=== PATIENT | female | born 1940 | race Caucasian/White ===

== ENCOUNTER 2019-01-20 12:27 | Emergency (ER) | payer BC, OTHER ==
[2019-01-20 13:09] LABS: Urine Blood NEGATIVE (NEG); Urine Glucose NEGATIVE (NEG); Urine Protein NEGATIVE (NEG)
[2019-01-20 13:10] LABS: Absolute Lymphocytes (CBC) 1.3 K/uL (0.7-4.9); Absolute Monocytes 0.6 K/uL (0.1-1.3); Absolute Neutrophil 7.4 K/uL (1.8-8.0); Basophils % 0.4 % (0-1.3); Eosinophils % 0.3 % (0-4.4); Hematocrit 42.2 % (36.0-45.0); Lymphocytes % 14.4 % (15.3-44.8); MPV 10.8 fL (7.6-11.3); RBC Red Blood Cell Count 4.35 M/uL (3.86-4.86)
[2019-01-20] MEDS ORDERED: NA CHLORIDE 0.9% 1,000 ML ONE (13:16)
[2019-01-20 13:27] LABS: Albumin 4.2 g/dL (3.4-5.0); Bilirubin Direct 0.2 mg/dL (0-0.2); Bilirubin Total 0.8 mg/dL (0.2-1.0); Potassium 4.6 mmol/L (3.5-5.1); Protein, Total 7.8 g/dL (6.4-8.2); Troponin (Emerg Dept Use Only) 0.02 ng/mL (0.0-0.045)
--- NOTE | 2019-01-20 13:54 | RAD REPORT ---
EXAM DESCRIPTION: Adrian Single View01/20/2019 1:32 pm CLINICAL HISTORY: htn COMPARISON: 2016 FINDINGS: The lungs appear clear of acute infiltrate. The heart is borderline enlarged IMPRESSION: No acute abnormalities displayed
--- NOTE | 2019-01-20 14:05 | ER ---
Nurse's Notes [facility] Name: Vanna Saunders Age: 78 yrs Sex: Female : 1940 Arrival Date: 01/20/2019 Time: 12:29 Bed 25 Private MD: Jose Everett Diagnosis: Essential (primary) hypertension Presentation: 01/20 12:33 Presenting complaint: Patient states: HTN 231/99 started this morning and is now having sv a headache. Transition of care: patient was not received from another setting of care. Onset of symptoms was January 20, 2019. Care prior to arrival: None. 12:33 Method Of Arrival: Ambulatory sv 12:33 Acuity: NEHA 3 sv 13:02 Risk Assessment: Do you want to hurt yourself or someone else? Patient reports no la1 desire to harm self or others. Initial Sepsis Screen: Does the patient meet any 2 criteria? No. Patient's initial sepsis screen is negative. Does the patient have a suspected source of infection?. Triage Assessment: 12:36 General: Appears in no apparent distress. comfortable, well developed, Behavior is sv calm, cooperative, appropriate for age. Pain: Complains of pain in face Pain currently is 1 out of 10 on a pain scale. Neuro: Level of Consciousness is awake, alert, obeys commands, Oriented to person, place, time, situation, Moves all extremities. Full function Gait is steady, Reports headache. Respiratory: Airway is patent Respiratory effort is even, unlabored, Respiratory pattern is regular, symmetrical. Historical: - Allergies: 12:35 No Known Allergies; sv - Home Meds: 12:35 hydrochlorothiazide 25 mg Oral tab 1 tab once daily [Active]; irbesartan 150 mg Oral sv tab 1 tab once daily [Active]; atorvastatin oral oral [Active]; aspirin 81 mg Oral chew [Active]; - PMHx: 12:35 Hypertension; sv - PSHx: 12:35 None; sv - Immunization history:: Adult Immunizations up to date. - Social history:: Smoking status: Patient/guardian denies using tobacco. - Ebola Screening: : No symptoms or risks identified at this time. Screenin:01 Abuse screen: Denies threats or abuse. Nutritional screening: No deficits noted. la1 Tuberculosis screening: No symptoms or risk factors identified. Fall Risk None identified. Assessment: 13:00 General: Appears in no apparent distress. Behavior is calm, cooperative. Pain: la1 Complains of pain in face. 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 Gait is steady, Speech is normal, Facial symmetry appears normal, Pupils are PERRLA. Cardiovascular: Capillary refill < 3 seconds Patient's skin is warm and dry. Cardiovascular: Denies chest pain, diaphoresis, fatigue, lightheadedness, nausea, palpitations, shortness of breath, syncope, vomiting. Respiratory: Airway is patent Respiratory effort is even, unlabored, Respiratory pattern is regular, symmetrical, Breath sounds are clear bilaterally. GI: No signs and/or symptoms were reported involving the gastrointestinal system. : No signs and/or symptoms were reported regarding the genitourinary system. 14:14 Reassessment: Patient appears in no apparent distress at this time. No changes from la1 previously documented assessment. Patient and/or family updated on plan of care and expected duration. Pain level reassessed. Patient is alert, oriented x 3, equal unlabored respirations, skin warm/dry/pink. 14:36 Reassessment: awaiting BP to stabilize before D/C. la1 Vital Signs: 12:35 BP 202 / 99; Pulse 87; Resp 18; Temp 98; Pulse Ox 97% ; Weight 77.11 kg; Height 5 ft. 3 sv in. (160.02 cm); Pain 1/10; 13:10 BP 166 / 81; Pulse 75; Resp 16; Pulse Ox 98% on R/A; la1 14:13 BP 188 / 93; Pulse 64; Resp 16; Pulse Ox 97% on R/A; la1 14:29 BP 188 / 88; la1 12:35 Body Mass Index 30.11 (77.11 kg, 160.02 cm) sv ED Course: 12:29 Patient arrived in ED. mr 12:29 Jose Everett MD is Private Physician. mr 12:34 Triage completed. sv 12:35 Arm band placed on. sv 12:43 Manuel Poe RN is Primary Nurse. la1 12:47 Raz Desai MD is Attending Physician. meggan 13:01 Bed in low position. Call light in reach. Pulse ox on. NIBP on. la1 13:01 Inserted saline lock: 22 gauge in left antecubital area, using aseptic technique. Blood la1 collected. 13:32 XRAY Chest (1 view) In Process Unspecified. EDMS 14:04 Jose Everett MD is Referral Physician. [facility] 14:04 Everardo Johnson MD is Referral Physician. [facility] 14:50 No provider procedures requiring assistance completed. IV discontinued, intact, la1 bleeding controlled, No redness/swelling at site. Pressure dressing applied. Administered Medications: 13:11 Drug: NS 0.9% 1000 ml Route: IV; Rate: 75 ml/hr; Site: left antecubital; la1 14:50 Follow up: IV Status: Order to discontinue infusion la1 14:13 Drug: TORadol 30 mg Route: IVP; Site: left antecubital; la1 14:29 Follow up: Response: No adverse reaction; Pain is decreased la1 14:49 Drug: Norvasc 5 mg Route: PO; la1 14:49 Follow up: Response: Medication administered at discharge. la1 Outcome: 14:04 Discharge ordered by . meggan 14:50 Discharged to home ambulatory. la1 14:50 Condition: stable 14:50 Discharge instructions given to patient, Instructed on discharge instructions, follow up and referral plans. medication usage, Demonstrated understanding of instructions, follow-up care, medications, Prescriptions given X 1. 14:50 Patient left the ED. la1 Signatures: Dispatcher [employer] EDSC Sherry Myers RN RN sv Anderson, Corey, MD MD cha Rivera, Mary mr Attema, Lee RN RN la1 Corrections: (The following items were deleted from the chart) 12:36 12:33 Acuity: NEHA 4 sv sv 12:37 12:35 Pulse 87bpm; Resp 18bpm; Pulse Ox 97%; Temp 98F; 77.11 kg; Height 5 ft. 3 in.; sv BMI: 30.1; Pain 1/10; sv
--- NOTE | 2019-01-20 14:05 | EDPHYS ---
Physician Documentation [facility] Name: Vanna Saunders Age: 78 yrs Sex: Female : 1940 Arrival Date: 01/20/2019 Time: 12:29 Bed 25 Private MD: Jose Everett ED Physician Raz Desai HPI: 01/20 14:00 This 78 yrs old Female presents to ER via Ambulatory with complaints of High meggan Blood Pressure. 14:00 The patient has elevated blood pressure and discovered this at home. Onset: The meggan symptoms/episode began/occurred just prior to arrival. Modifying factors: The symptoms are aggravated by activity, The symptoms are alleviated by remaining still. Associated signs and symptoms: Pertinent positives: headache. Severity of symptoms: At its worst the blood pressure was mild, in the emergency department the blood pressure is unchanged. The patient has experienced similar episodes in the past, a few times. Historical: - Allergies: 12:35 No Known Allergies; sv - Home Meds: 12:35 hydrochlorothiazide 25 mg Oral tab 1 tab once daily [Active]; irbesartan 150 mg Oral sv tab 1 tab once daily [Active]; atorvastatin oral oral [Active]; aspirin 81 mg Oral chew [Active]; - PMHx: 12:35 Hypertension; sv - PSHx: 12:35 None; sv - Immunization history:: Adult Immunizations up to date. - Social history:: Smoking status: Patient/guardian denies using tobacco. - Ebola Screening: : No symptoms or risks identified at this time. ROS: 14:00 Constitutional: Negative for fever, chills, and weight loss, Eyes: Negative for injury, meggan pain, redness, and discharge, ENT: Negative for injury, pain, and discharge, Neck: Negative for injury, pain, and swelling, Cardiovascular: Negative for chest pain, palpitations, and edema, Respiratory: Negative for shortness of breath, cough, wheezing, and pleuritic chest pain, Abdomen/GI: Negative for abdominal pain, nausea, vomiting, diarrhea, and constipation, Back: Negative for injury and pain, : Negative for injury, bleeding, discharge, and swelling, MS/Extremity: Negative for injury and deformity, Skin: Negative for injury, rash, and discoloration, Psych: Negative for depression, anxiety, suicide ideation, homicidal ideation, and hallucinations, Allergy/Immunology: Negative for hives, rash, and allergies, Endocrine: Negative for neck swelling, polydipsia, polyuria, polyphagia, and marked weight changes, Hematologic/Lymphatic: Negative for swollen nodes, abnormal bleeding, and unusual bruising. 14:00 Neuro: Positive for headache. Exam: 14:00 Constitutional: This is a well developed, well nourished patient who is awake, alert, meggan and in no acute distress. Head/Face: Normocephalic, atraumatic. Eyes: Pupils equal round and reactive to light, extra-ocular motions intact. Lids and lashes normal. Conjunctiva and sclera are non-icteric and not injected. Cornea within normal limits. Periorbital areas with no swelling, redness, or edema. ENT: Nares patent. No nasal discharge, no septal abnormalities noted. Tympanic membranes are normal and external auditory canals are clear. Oropharynx with no redness, swelling, or masses, exudates, or evidence of obstruction, uvula midline. Mucous membranes moist. Neck: Trachea midline, no thyromegaly or masses palpated, and no cervical lymphadenopathy. Supple, full range of motion without nuchal rigidity, or vertebral point tenderness. No Meningismus. Chest/axilla: Normal chest wall appearance and motion. Nontender with no deformity. No lesions are appreciated. Cardiovascular: Regular rate and rhythm with a normal S1 and S2. No gallops, murmurs, or rubs. Normal PMI, no JVD. No pulse deficits. Respiratory: Lungs have equal breath sounds bilaterally, clear to auscultation and percussion. No rales, rhonchi or wheezes noted. No increased work of breathing, no retractions or nasal flaring. Abdomen/GI: Soft, non-tender, with normal bowel sounds. No distension or tympany. No guarding or rebound. No evidence of tenderness throughout. Back: No spinal tenderness. No costovertebral tenderness. Full range of motion. Skin: Warm, dry with normal turgor. Normal color with no rashes, no lesions, and no evidence of cellulitis. MS/ Extremity: Pulses equal, no cyanosis. Neurovascular intact. Full, normal range of motion. Neuro: Awake and alert, GCS 15, oriented to person, place, time, and situation. Cranial nerves II-XII grossly intact. Motor strength 5/5 in all extremities. Sensory grossly intact. Cerebellar exam normal. Normal gait. Psych: Awake, alert, with orientation to person, place and time. Behavior, mood, and affect are within normal limits. 14:00 Neuro: Orientation: is normal, Mentation: is normal, appropriate for stated age, no acute changes, Memory: is normal, appropriate for stated age, no acute changes, Cranial nerves: grossly normal, is grossly normal based on the patient's age, no acute changes, Cerebellar function: is grossly normal, is grossly normal based on the patient's age, no acute changes, Motor: moves all fours, Sensation: is normal, no obvious gross deficits, appropriate Gait: not tested. seizure activity, is not displayed by the patient. Vital Signs: 12:35 BP 202 / 99; Pulse 87; Resp 18; Temp 98; Pulse Ox 97% ; Weight 77.11 kg; Height 5 ft. 3 sv in. (160.02 cm); Pain 1/10; 13:10 BP 166 / 81; Pulse 75; Resp 16; Pulse Ox 98% on R/A; la1 14:13 BP 188 / 93; Pulse 64; Resp 16; Pulse Ox 97% on R/A; la1 14:29 BP 188 / 88; la1 12:35 Body Mass Index 30.11 (77.11 kg, 160.02 cm) sv MDM: 12:47 Medical screening is not applicable. [facility] 14:03 Data reviewed: vital signs, nurses notes, lab test result(s), EKG, radiologic studies, [facility] plain films. 01/20 12:45 Order name: Basic Metabolic Panel; Complete Time: 13:53 [facility] 01/20 12:45 Order name: CBC with Diff; Complete Time: 13:53 [facility] 01/20 12:45 Order name: LFT's; Complete Time: 13:53 [facility] 01/20 12:45 Order name: Magnesium; Complete Time: 13:53 [facility] 01/20 12:45 Order name: NT PRO-BNP; Complete Time: 13:53 [facility] 01/20 12:45 Order name: PT-INR; Complete Time: 13:53 [facility] 01/20 12:45 Order name: Troponin (emerg Dept Use Only); Complete Time: 13:53 [facility] 01/20 12:45 Order name: XRAY Chest (1 view) [facility] 01/20 12:45 Order name: EKG; Complete Time: 12:46 [facility] 01/20 12:50 Order name: Urine Culture [facility] 01/20 13:02 Order name: Urine Dipstick--Ancillary (enter results); Complete Time: 13:53 [facility] 01/20 12:45 Order name: Cardiac monitoring; Complete Time: 13:00 [facility] 01/20 12:45 Order name: EKG - Nurse/Tech; Complete Time: 13:00 [facility] 01/20 12:45 Order name: IV Saline Lock; Complete Time: 13:00 [facility] 01/20 12:45 Order name: Labs collected and sent; Complete Time: 13:00 [facility] 01/20 12:45 Order name: O2 Per Protocol; Complete Time: 13:00 [facility] 01/20 12:45 Order name: O2 Sat Monitoring; Complete Time: 13:00 [facility] 01/20 12:50 Order name: Urine Dipstick-Ancillary (obtain specimen); Complete Time: 13:00 [facility] Administered Medications: 13:11 Drug: NS 0.9% 1000 ml Route: IV; Rate: 75 ml/hr; Site: left antecubital; la1 14:50 Follow up: IV Status: Order to discontinue infusion la1 14:13 Drug: TORadol 30 mg Route: IVP; Site: left antecubital; la1 14:29 Follow up: Response: No adverse reaction; Pain is decreased la1 14:49 Drug: Norvasc 5 mg Route: PO; la1 14:49 Follow up: Response: Medication administered at discharge. [facility] Disposition: 01/20/19 14:04 Discharged to Home. Impression: Essential (primary) hypertension. - Condition is Stable. - Discharge Instructions: General Headache Without Cause, Hypertension, Hypertension, [id number], How to Take Your Blood Pressure, Ioac-pc-[id number], General Headache Without Cause, [id number], Managing Your Hypertension. - Prescriptions for Norvasc 5 mg Oral Tablet - take 1 tablet by ORAL route once daily; 20 tablet. - Medication Reconciliation Form, Thank You Letter, Antibiotic Education, Prescription Opioid Use form. - Follow up: Jose Everett; When: 2 - 3 days; Reason: Recheck today's complaints, Continuance of care, Re-evaluation by your physician. Follow up: Everardo Johnson MD; When: 2 - 3 days; Reason: Recheck today's complaints, Re-evaluation by your physician. - Problem is new. - Symptoms have improved. Signatures: Dispatcher [employer] Sherry Carrera, RN RN Raz Little MD MD cha Attema, Lee, RN RN la1 Corrections: (The following items were deleted from the chart) 14:50 14:04 01/20/2019 14:04 Discharged to Home. Impression: Essential (primary) la1 hypertension. Condition is Stable. Forms are Medication Reconciliation Form, Thank You Letter, Antibiotic Education, Prescription Opioid Use. Follow up: Jose Everett; When: 2 - 3 days; Reason: Recheck today's complaints, Continuance of care, Re-evaluation by your physician. Follow up: Everardo Johnson; When: 2 - 3 days; Reason: Recheck today's complaints, Re-evaluation by your physician. Problem is new. Symptoms have improved. meggan
[2019-01-20] MEDS ORDERED: KETOROLAC 30 MG/ML INJ ONE (14:14)
[2019-01-20] MEDS ORDERED: AMLODIPINE 5 MG TAB ONE (14:56)
[2019-01-20 15:05] VITALS: TEMP 98
[2019-01-20 15:07] VITALS: BP 188/88; O2SAT 97
--- NOTE | 2019-01-21 07:45 | EKG ---
Test Date: 2019-01-20 Test Time: 12:50:24 [employer]: LA MEASUREMENT RESULTS: Intervals: Rate: 80 WI: 138 QRSD: 82 QT: 394 QTc: 454 [place]: P: 53 WI: 138 QRS: -45 T: 46 INTERPRETIVE STATEMENTS: Normal sinus rhythm Possible Left atrial enlargement Left anterior fascicular block Left ventricular hypertrophy Abnormal ECG Compared to ECG 06/30/2016 06:47:45 Sinus bradycardia no longer present T-wave abnormality no longer present Electronically Signed On 01-21-19 07:44:54 CDT by Nils Burch
== END 2019-01-20 14:50 | disposition home or self-care (01) ==
LOC: ER 12:27
DX: I10 Essential (primary) hypertension (principal); Z79.82 Long term (current) use of aspirin
CPT/HCPCS: 36415; 71045; 80048; 80076; 81003; 83735; 83880; 84484; 85025; 85610; 87086; 87088; 93005; 96361; 96374; 99284; J7030

== ENCOUNTER 2024-09-02 14:53 | Emergency (ER) | payer BC, OTHER ==
[2024-09-02 16:29] LABS: Absolute Eosinophils 0.2 K/uL (0-0.5); Absolute Lymphocytes (CBC) 1.7 K/uL (0.7-4.9); Absolute Monocytes 1.1 K/uL (0.1-1.3); Absolute Neutrophil 9.6 K/uL (1.8-8.0); Basophils % 0.3 % (0-1.3); Eosinophils % 1.3 % (0-4.4); Hematocrit 47.1 % (36.0-45.0); Hemoglobin 15.4 g/dL (12.0-15.0); Lymphocytes % 13.6 % (15.3-44.8); MCH 32.4 pg (27.0-35.0); MCHC 32.6 g/dL (32.0-36.0); MCV 99.5 fL (80-100); MPV 10.7 fL (7.6-11.3); Monocytes % 8.7 % (3.3-12.3); Neutrophils % 76.1 % (41.7-73.7); Platelets 233 thou/uL (152-406); RBC Red Blood Cell Count 4.74 M/uL (3.86-4.86); Red Cell Distribution Width 13.6 % (12.1-15.2)
[2024-09-02 16:35] LABS: PT Prothrombin Time 11.9 SECONDS (9.4-12.5); Protime INR 1.06
[2024-09-02 16:47] LABS: Anion Gap 11.7 mEq/L (5.0-15.0); Potassium 3.7 mEq/L (3.5-5.1); Troponin High Sensitivity 8.9 pg/mL (<58.9)
--- NOTE | 2024-09-02 16:51 | RAD REPORT ---
EXAMINATION: ONE VIEW CHEST XR CLINICAL INDICATION: Female, 84 years old.,CHEST PAIN TECHNIQUE: Frontal chest projection is submitted. Examination is limited by patient positioning and t echnique. COMPARISON: 01/20/2019 FINDINGS: The lungs are well inflated and clear. No pneumothorax or sizable effusion. The heart is normal in s ize. Mediastinal contours are unremarkable. IMPRESSION: No acute intrathoracic abnormalities.
--- NOTE | 2024-09-02 17:11 | ER ---
Nurse's Notes [facility] Name: Vanna Saunders Age: 84 yrs Sex: Female : 1940 Arrival Date: 09/02/2024 Time: 14:53 Bed 4 Private MD: Diagnosis: Essential (primary) hypertension Presentation: 09/02 15:20 Chief complaint: Patient states: high blood pressure readings at home up to "178/92", aa5 pt has blood pressure log with her. Pt states "I am having a little chest pressure but I think it's because I am stressed about my blood pressure". Coronavirus screen: At this time, the client does not indicate any symptoms associated with coronavirus-19. Ebola Screen: Patient denies travel to an Ebola-affected area in the 21 days before illness onset. Initial Sepsis Screen: Does the patient meet any 2 criteria? No. Patient's initial sepsis screen is negative. Does the patient have a suspected source of infection? No. Patient's initial sepsis screen is negative. Risk Assessment: Do you want to hurt yourself or someone else? Patient reports no desire to harm self or others. Onset of symptoms was August 2024. 15:20 Method Of Arrival: Ambulatory aa5 15:20 Acuity: NEHA 2 aa5 Triage Assessment: 16:15 General: Appears in no apparent distress. Behavior is cooperative, appropriate for age, bp anxious. Pain: Complains of pain in chest. EENT: No deficits noted. Neuro: No deficits noted. Cardiovascular: Rhythm is sinus rhythm. Respiratory: No deficits noted. GI: No signs and/or symptoms were reported involving the gastrointestinal system. : No signs and/or symptoms were reported regarding the genitourinary system. Derm: No deficits noted. Musculoskeletal: No deficits noted. Historical: - Allergies: 15:23 No Known Allergies; aa5 - PMHx: 15:20 Hypertension; aa5 15:23 Hypercholesterolemia; Osteoporosis; spine; aa5 - PSHx: 15:20 heart stent (Unknown); aa5 15:23 cataracts; right wrist sx; Right jacobo; aa5 - Immunization history:: Adult Immunizations unknown. - Infectious Disease History:: Denies. - Social history:: Smoking status: Patient denies any tobacco usage or history of. Screenin:15 [facility] ED Fall Risk Assessment (Adult) History of falling in the last 3 months, bp including since admission No falls in past 3 months (0 pts) Confusion or Disorientation No (0 pts) Intoxicated or Sedated No (0 pts) Impaired Gait No (0 pts) Mobility Assist Device Used No (0 pt) Altered Elimination No (0 pt) Score/Fall Risk Level 0 - 2 = Low Risk. Abuse screen: Denies threats or abuse. Denies injuries from another. Nutritional screening: No deficits noted. Tuberculosis screening: No symptoms or risk factors identified. Assessment: 16:15 General: SEE TRIAGE NOTE. bp 17:01 Reassessment: Patient appears in no apparent distress at this time. Patient and/or hb family updated on plan of care and expected duration. Pain level reassessed. Patient is alert, oriented x 3, equal unlabored respirations, skin warm/dry/pink. 17:36 Reassessment: DC HOME AMBULATORY Patient states symptoms have improved. bp Vital Signs: 15:20 BP 200 / 82; Pulse 71; Resp 16 S; Temp 98.9(O); Pulse Ox 97% on R/A; Weight 68.95 kg aa5 (R); Height 5 ft. 3 in. (R); 16:30 BP 155 / 69; Pulse 65; Resp 16; Pulse Ox 100% ; bp 17:00 BP 155 / 69; Pulse 63; Resp 16; Pulse Ox 99% on R/A; hb 17:36 BP 161 / 83; Pulse 66; Resp 16; Pulse Ox 100% ; bp 15:20 Body Mass Index 26.93 (68.95 kg, 160.02 cm) aa5 ED Course: 15:01 Patient arrived in ED. mg5 15:19 Arm band placed on. aa5 15:22 Triage completed. aa5 15:25 Josh Cortes MD is Attending Physician. ec2 15:27 EKG completed in triage. Results shown to . aa5 15:58 XRAY Chest (1 view) In Process Unspecified. EDMS 16:15 Patient has correct armband on for positive identification. Provided Education on: N/A. bp Client placed on continuous cardiac and pulse oximetry monitoring. NIBP monitoring applied. monitoring specialist on. Pulse ox on. NIBP on. 16:15 No provider procedures requiring assistance completed. Patient maintains SpO2 bp saturation greater than 95% on room air. 16:20 Basic Metabolic Panel Sent. 6 16:20 CBC with Diff Sent. bc6 16:20 NT PRO-BNP Sent. bc6 16:20 PT-INR Sent. bc6 16:20 Troponin HS Sent. bc6 16:20 Initial lab(s) drawn, by me, sent to lab. Inserted saline lock: 20 gauge in left bc6 antecubital area, using aseptic technique. Blood collected. Flushed with 10 mL NS. 16:25 Jose Romero, RN is Primary Nurse. bp 17:10 Parag Pineda MD is Referral Physician. ec2 17:36 IV discontinued, intact, bleeding controlled, No redness/swelling at site. Pressure bp dressing applied. Administered Medications: No medications were administered Medication: 16:15 VIS not applicable for this client. bp Outcome: 17:10 Discharge ordered by . ec2 17:36 Discharged to home ambulatory, bp 17:36 Condition: stable 17:36 Discharge instructions given to patient, Instructed on discharge instructions, follow up and referral plans. Demonstrated understanding of instructions, follow-up care, 17:38 Patient left the ED. bp Signatures: Dispatcher [employer] EDChika Sandoval RN RN aa5 Meg Bermudez RN RN Jose Romero, RN RN bp Eloisa Bolanos 6 Becka Shine 5 Josh Cortes MD MD ec2 Corrections: (The following items were deleted from the chart) 15:36 15:20 Acuity: NEHA 3 aa5 aa5
--- NOTE | 2024-09-02 17:11 | EDPHYS ---
Physician Documentation [facility] Name: Vanna Saunders Age: 84 yrs Sex: Female : 1940 Arrival Date: 09/02/2024 Time: 14:53 Bed 4 Private MD: ED Physician Josh Cortes HPI: 09/02 16:52 This 84 yrs old Female presents to ER via Ambulatory with complaints of High ec2 Blood Pressure, Chest Pressure - ON AND OFF. 16:52 Patient arrives today due to concern for elevated blood pressure. Reports that she has ec2 a history of high blood pressure, states that she is been taken her blood pressure at home regularly and noted some elevated blood pressure. Reports that she is been having some occasional chest discomfort ongoing for a couple of weeks, no specific alleviating or exacerbating factors, denies any active chest pain at this time.. Historical: - Allergies: 15:23 No Known Allergies; aa5 - PMHx: 15:20 Hypertension; aa5 15:23 Hypercholesterolemia; Osteoporosis; spine; aa5 - PSHx: 15:20 heart stent (Unknown); aa5 15:23 cataracts; right wrist sx; Right jacobo; aa5 - Immunization history:: Adult Immunizations unknown. - Infectious Disease History:: Denies. - Social history:: Smoking status: Patient denies any tobacco usage or history of. ROS: 16:52 Constitutional: as per hpi ec2 Exam: 16:52 Constitutional: GEN: NAD Head: atraumatic Eyes: EOMI Ears: External ears are ec2 normal. CV: regular rate LUNGS: no respiratory distress ABD: non-distended SKIN: no evidence of rashes MSK: no evidence of trauma Vital Signs: 15:20 BP 200 / 82; Pulse 71; Resp 16 S; Temp 98.9(O); Pulse Ox 97% on R/A; Weight 68.95 kg aa5 (R); Height 5 ft. 3 in. (R); 16:30 BP 155 / 69; Pulse 65; Resp 16; Pulse Ox 100% ; bp 17:00 BP 155 / 69; Pulse 63; Resp 16; Pulse Ox 99% on R/A; hb 17:36 BP 161 / 83; Pulse 66; Resp 16; Pulse Ox 100% ; bp 15:20 Body Mass Index 26.93 (68.95 kg, 160.02 cm) aa5 MDM: 15:35 ED course: EKG independently reviewed and interpreted by me, shows normal sinus rhythm, ec2 rate of 66, no acute ST segment elevations, intervals are nonactionable.. 15:56 Medical Screening Exam initiated ec2 16:52 Data reviewed: vital signs, nurses notes. ED course: Patient arrives today for ec2 evaluation of elevated blood pressure. Examination is unrevealing. Will EKG as above, will obtain chest x-ray as well as lab work. Differential includes ACS, essential hypertension, electrolyte disturbances, anemia, doubt PE, doubt dissection.. 17:05 ED course: CBC, metabolic profile, troponin, BNP are unrevealing, chest x-ray shows no ec2 acute intrathoracic process. Will discharge home, will have the patient follow-up with her primary care doctor and measurement supervisor regarding her elevated blood pressure.. 12/ 15:26 Order name: Basic Metabolic Panel; Complete Time: 17:04 ec2 09/02 15:26 Order name: CBC with Diff; Complete Time: 17:04 ec2 09/02 15:26 Order name: NT PRO-BNP; Complete Time: 17:04 ec2 09/02 15:26 Order name: PT-INR; Complete Time: 17:04 ec2 09/02 15:26 Order name: Troponin HS; Complete Time: 17:04 ec2 09/02 15:26 Order name: XRAY Chest (1 view); Complete Time: 17:04 ec2 09/02 15:26 Order name: Cardiac monitoring; Complete Time: 16:37 ec2 09/02 15:26 Order name: EKG - Nurse/Tech; Complete Time: 15:36 ec2 09/02 15:26 Order name: IV Saline Lock; Complete Time: 16:20 ec2 09/02 15:26 Order name: Labs collected and sent; Complete Time: 16:20 ec2 09/02 15:26 Order name: O2 Per Protocol; Complete Time: 16:37 ec2 09/02 15:26 Order name: O2 Sat Monitoring; Complete Time: 16:37 ec2 Administered Medications: No medications were administered Disposition Summary: 09/02/24 17:10 Discharge Ordered Notes: Location: Home ec2 Condition: Stable ec2 Diagnosis - Essential (primary) hypertension ec2 Followup: ec2 - With: Parag Pineda MD - When: - Reason: Recheck today's complaints Discharge Instructions: - Discharge Summary Sheet ec2 Forms: - Medication Reconciliation Form ec2 - Antibiotic Education ec2 - Prescription Opioid Use ec2 - Patient Portal Instructions ec2 - Leadership Thank You Letter ec2 Signatures: Dispatcher [employer] Chika Mims RN RN aa5 Josh Cortes MD MD ec2
[2024-09-02 17:55] VITALS: TEMP 98.9
[2024-09-02 18:10] VITALS: BP 161/83; O2SAT 100
== END 2024-09-02 17:38 | disposition home or self-care (01) ==
LOC: ER 14:53
DX: I10 Essential (primary) hypertension (principal); Z95.818 Presence of other cardiac implants and grafts
CPT/HCPCS: 36415; 71045; 80048; 83880; 84484; 85025; 85610; 99284